=== PATIENT | female | born 1990 | race Two or more races ===

== ENCOUNTER 2017-05-10 08:52 | Inpatient (IN) | payer OTHER ==
[~2017-05-10] VITALS: Ht 160 cm; Wt 65.3 kg
[2017-05-10 08:58] VITALS: Ht 160 cm; Wt 65.3 kg
[2017-05-10 09:25] LABS: BASOPHIL % 0.7 % (0-2); PLATELET COUNT 394 x10^3mcL (130-400); RED CELL DISTRIBUTION WIDTH 13.8 % (11.5-14.5)
[2017-05-10 09:57] LABS: CALCIUM 8.9 mg/dL (8.5-10.1); CARBON DIOXIDE 24.9 mmol/L (21-32); CHLORIDE SERUM 102 mmol/L (98-107); CREATININE SERUM 0.7 mg/dL (0.6-1.0); GFR1 > 60 mL/min; GLUCOSE SERUM 97 mg/dL (74-106); SODIUM SERUM 136 mmol/L (136-145)
[2017-05-10 10:02] LABS: ALKALINE PHOSPHATASE 39 U/L (46-116); AST/SGOT 17 U/L (15-37); BILIRUBIN TOTAL 0.27 mg/dL (0.20-1.00); TOTAL PROTEIN, SERUM 7.8 g/dL (6.4-8.2)
[2017-05-10 10:13] LABS: ALT/SGPT 20 U/L (14-59)
[2017-05-10 11:53] LABS: BASOPHIL % 0.4 % (0-2); PLATELET COUNT 308 x10^3mcL (130-400); RED CELL DISTRIBUTION WIDTH 13.6 % (11.5-14.5)
[2017-05-10 13:59] LABS: CHOLESTEROL/HDL RATIO 2.5; PHOSPHOROUS 3.5 mg/dL (2.5-4.9)
[2017-05-10 14:00] LABS: IRON 41 ug/dL (50-170); TOTAL IRON BINDING CAPACITY 397 ug/dL (250-450)
[2017-05-10 14:08] VITALS: BP 100/72
[2017-05-10 14:22] LABS: RED BLOOD CELLS 3.07 M/mm3 (4.10-5.10)
[2017-05-10 17:05] VITALS: BP 105/60
[2017-05-10 21:16] VITALS: BP 97/56
[2017-05-10 22:10] LABS: microscopic required? YES; urine erythrocyte 3+ (NEGATIVE)
[2017-05-10 22:19] LABS: AMPHETAMINE QUAL UR NONE DETECTED (NEG <=1000)
[2017-05-11 05:26] VITALS: BP 100/52
[2017-05-11 06:38] LABS: CALCIUM 7.9 mg/dL (8.5-10.1); CARBON DIOXIDE 24.5 mmol/L (21-32); CHLORIDE SERUM 109 mmol/L (98-107); CREATININE SERUM 0.6 mg/dL (0.6-1.0); GFR1 > 60 mL/min; GLUCOSE SERUM 97 mg/dL (74-106); MAGNESIUM 1.9 mg/dL (1.8-2.4); PHOSPHOROUS 3.3 mg/dL (2.5-4.9); POTASSIUM SERUM 4.1 mmol/L (3.5-5.1); SODIUM SERUM 143 mmol/L (136-145)
[2017-05-11 08:17] VITALS: BP 100/53
[2017-05-11 09:27] LABS: BASOPHIL % 0.5 % (0-2); PLATELET COUNT 268 x10^3mcL (130-400)
[2017-05-11] MEDS ORDERED: PROVERA10 MG PO (12:39)
[2017-05-11] MEDS ORDERED: FERROUS SULFAT325 M2 PO (13:01)
[2017-05-11 13:11] VITALS: BP 100/53
== END 2017-05-11 15:52 | disposition home or self-care (01) | DRG 532 ==
LOC: ED 08:52 → DU 12:38 → MU 12:38 → DU 13:35 → MU 16:03
PROVIDERS: Emergency Medicine; Family Medicine Sports Medicine
DX: N93.9 Abnormal uterine and vaginal bleeding, unspecified (principal); E87.2 Acidosis; D64.9 Anemia, unspecified; N92.0 Excessive and frequent menstruation with regular cycle
CPT/HCPCS: 83880; J2916; J7030; Q0092

== ENCOUNTER 2017-05-11 16:50 | Inpatient (IN) | payer OTHER ==
[~2017-05-11] VITALS: Ht 160 cm; Wt 64.0 kg
[~2017-05-11 16:50] MED LIST: FERROUS SULFAT325 M2 PO; PROVERA10 MG PO
[2017-05-11 17:04] VITALS: Ht 160 cm; Wt 64.0 kg
[2017-05-11 17:44] LABS: BASOPHIL % 0.6 % (0-2); PLATELET COUNT 311 x10^3mcL (130-400); RED CELL DISTRIBUTION WIDTH 13.7 % (11.5-14.5)
[2017-05-11 20:10] VITALS: BP 118/69
[2017-05-11 20:54] LABS: FREE THYROXINE INDEX 2.6 ug/dL (1.4-4.5); T3 TOTAL 1.01 ng/mL; T4(THYROXINE) 7.4 ug/dL (4.7-13.3)
[2017-05-11 21:23] LABS: CALCIUM 7.8 mg/dL (8.5-10.1); CHLORIDE SERUM 108 mmol/L (98-107); CREATININE SERUM 0.5 mg/dL (0.6-1.0); GFR1 > 60 mL/min; GLUCOSE SERUM 113 mg/dL (74-106); POTASSIUM SERUM 3.7 mmol/L (3.5-5.1); SODIUM SERUM 140 mmol/L (136-145)
[2017-05-11 22:18] LABS: CHOLESTEROL/HDL RATIO 3.1; MAGNESIUM 1.9 mg/dL (1.8-2.4)
[2017-05-12 06:01] VITALS: BP 105/52
[2017-05-12 08:03] LABS: CALCIUM 7.5 mg/dL (8.5-10.1); CARBON DIOXIDE 23.3 mmol/L (21-32); CHLORIDE SERUM 109 mmol/L (98-107); CREATININE SERUM 0.6 mg/dL (0.6-1.0); GFR1 > 60 mL/min; GLUCOSE SERUM 95 mg/dL (74-106); POTASSIUM SERUM 3.6 mmol/L (3.5-5.1); SODIUM SERUM 141 mmol/L (136-145)
[2017-05-12 08:07] LABS: UA SPECIFIC GRAVITY >=1.030 (1.005-1.035); microscopic required? YES; urine erythrocyte 3+ (NEGATIVE)
[2017-05-12 08:11] LABS: BASOPHIL % 0.4 % (0-2); PLATELET COUNT 233 x10^3mcL (130-400); RED CELL DISTRIBUTION WIDTH 13.7 % (11.5-14.5)
[2017-05-12 08:14] LABS: AMPHETAMINE QUAL UR NONE DETECTED (NEG <=1000)
[2017-05-12 10:26] LABS: rbc morphology (normal/abnorm) ABNORMAL (NORMAL)
[2017-05-12 11:23] LABS: ALKALINE PHOSPHATASE 23 U/L (46-116); ALT/SGPT 15 U/L (14-59); AST/SGOT 11 U/L (15-37); BILIRUBIN TOTAL 0.08 mg/dL (0.20-1.00); CALCIUM 8.2 mg/dL (8.5-10.1); CARBON DIOXIDE 28.2 mmol/L (21-32); CHLORIDE SERUM 109 mmol/L (98-107); CREATININE SERUM 0.5 mg/dL (0.6-1.0); GFR1 > 60 mL/min; GLUCOSE SERUM 97 mg/dL (74-106); SODIUM SERUM 143 mmol/L (136-145)
[2017-05-12 11:27] LABS: TOTAL PROTEIN, SERUM 5.5 g/dL (6.4-8.2)
[2017-05-12 14:02] VITALS: BP 115/69
[2017-05-12 15:58] LABS: BASOPHIL % 0.6 % (0-2); PLATELET COUNT 232 x10^3mcL (130-400); RED CELL DISTRIBUTION WIDTH 13.6 % (11.5-14.5)
[2017-05-12 18:45] VITALS: BP 107/61
[2017-05-12 21:39] VITALS: BP 116/67
[2017-05-13 05:16] VITALS: BP 106/58
[2017-05-13 07:19] LABS: BASOPHIL % 0.5 % (0-2); PLATELET COUNT 242 x10^3mcL (130-400); RED CELL DISTRIBUTION WIDTH 14.4 % (11.5-14.5)
[2017-05-13 07:32] LABS: CALCIUM 7.8 mg/dL (8.5-10.1); CARBON DIOXIDE 24.3 mmol/L (21-32); CHLORIDE SERUM 107 mmol/L (98-107); CREATININE SERUM 0.6 mg/dL (0.6-1.0); GFR1 > 60 mL/min; GLUCOSE SERUM 88 mg/dL (74-106); MAGNESIUM 1.8 mg/dL (1.8-2.4); PHOSPHOROUS 4.1 mg/dL (2.5-4.9); POTASSIUM SERUM 3.7 mmol/L (3.5-5.1); SODIUM SERUM 142 mmol/L (136-145)
[2017-05-13 08:59] VITALS: BP 103/61
[2017-05-13 14:10] VITALS: BP 120/70
[2017-05-13 16:23] VITALS: BP 116/68
[2017-05-13 21:17] VITALS: BP 114/63
[2017-05-14 05:08] VITALS: BP 100/56
[2017-05-14 07:11] LABS: CARBON DIOXIDE 26.3 mmol/L (21-32); CHLORIDE SERUM 107 mmol/L (98-107); CREATININE SERUM 0.6 mg/dL (0.6-1.0); GFR1 > 60 mL/min; GLUCOSE SERUM 95 mg/dL (74-106); MAGNESIUM 1.9 mg/dL (1.8-2.4); PHOSPHOROUS 4.3 mg/dL (2.5-4.9); POTASSIUM SERUM 3.9 mmol/L (3.5-5.1); SODIUM SERUM 142 mmol/L (136-145)
[2017-05-14 07:19] LABS: BASOPHIL % 0.5 % (0-2); PLATELET COUNT 269 x10^3mcL (130-400); RED CELL DISTRIBUTION WIDTH 14.2 % (11.5-14.5)
[2017-05-14 09:52] VITALS: BP 121/75
[2017-05-14 12:51] VITALS: BP 109/64
[2017-05-14 17:02] VITALS: BP 116/81
[2017-05-14 18:01] VITALS: BP 116/81
[2017-05-14] MEDS ORDERED: VITC PO (18:02)
== END 2017-05-14 20:30 | disposition short-term general hospital (02) | DRG 532 ==
LOC: ED 16:50 → DU 18:54
PROVIDERS: Emergency Medicine; Family Medicine Sports Medicine
PROC: 30233N1 Transfusion of Nonautologous Red Blood Cells into Peripheral Vein, Percutaneous Approach (ICD-10-PCS; principal; 2017-05-12)
DX: N92.0 Excessive and frequent menstruation with regular cycle (principal); E83.51 Hypocalcemia; Q27.39 Arteriovenous malformation, other site; D64.9 Anemia, unspecified; N93.9 Abnormal uterine and vaginal bleeding, unspecified; Z98.891 History of uterine scar from previous surgery; Z83.49 Family history of other endocrine, nutritional and metabolic diseases
CPT/HCPCS: 83880; 84439; J1050; J2916; J7030; J7050; P9016; Q0163; Q9967